=== PATIENT | female | born 1965 | race Caucasian/White ===

== ENCOUNTER 2020-06-12 14:11 | Inpatient (IN) | payer BC ==
[~2020-06-12] VITALS: Ht 177.8 cm; Wt 106.0 kg
[~2020-06-12 14:11] MED LIST: BACTRIM DS1 TAB PO; DIOVAN HC1 PO; DYAZIDE1 CAP PO; FERRAPLUS 90 PO; FOLIC ACID1 MG PO; METOPROL TAR50 MG PO; TRIAM/HCTZ1 CAP PO
--- NOTE | 2020-06-12 14:15 | NUR ---
PATIENT TO ROOM VIA WHEELCHAIR AND PHYSICIAN NOTIFIED OF PATIENT STATUS
[2020-06-12] MEDS ORDERED: LOSARTAN POTASS50 MG PO (15:38)
[2020-06-12] MEDS ORDERED: METOPROL TAR25 MG PO (15:39)
[2020-06-12 15:51] LABS: HEMATOCRIT 35.4 % (37.0-47.0); IMMATURE GRANULOCYTES 1.9 % (0.0-5.0); MEAN CORPUSCULAR HGB 27.3 pG CALC (26.0-32.0); MEAN CORPUSCULAR HGB CONC 31.4 g/dL CAL (32.0-36.0); NEUT# 5.98 thou/uL (2.00-7.15); RED BLOOD COUNT 4.07 mill/uL (4.20-5.60); RED CELL DISTRI WIDTH 15.9 % (11.5-15.5)
[2020-06-12 15:57] LABS: HEMOGLOBIN 11.1 g/dl (12.0-16.0)
[2020-06-12 16:10] LABS: ALBUMIN 3.7 g/dL (3.2-5.0); ALKALINE PHOSPHATASE 84 u/l (38-126); ANION GAP 13 (6-22 (CALC)); BUN 10 mg/dL (7-17); BUN/CREATININE RATIO 13 (12-20 (CALC)); CARBON DIOXIDE 29 mmol/l (22-30); CHLORIDE 96 mmol/l (95-108); CREATININE 0.8 mg/dL (0.5-1.0); GFR > 60 ML/MIN (>=60 (CALC)); GFR FOR AFR.AMER. > 60 ML/MIN (>=60 (CALC)); POTASSIUM 3.7 mmol/l (3.5-5.1); SODIUM 134 mmol/l (137-146); TOTAL PROTEIN 7.7 g/dL (6.3-8.2)
[2020-06-12 16:12] LABS: BILIRUBIN, TOTAL 0.4 mg/dL (0.0-1.4); SGOT/AST 50 u/l (14-36)
[2020-06-12 16:24] LABS: C-REACTIVE PROTEIN 26.2 mg/dL (0-0.9)
--- NOTE | 2020-06-12 17:32 | NUR ---
PT WITHOUT ACUTE DISTRESS
--- NOTE | 2020-06-12 18:21 | NUR ---
PT WITHOUT DISTRESS LOVENOX GIVEN
--- NOTE | 2020-06-12 18:40 | NUR ---
Admission Note Report Given to: sbar printed to floor Transported by: x Wheelchair Stretcher Transported with: x Nurse Transporter x Patent IV O2 x Automated Manufacturing Instructor Location: ICU x [facility]
--- NOTE | 2020-06-12 18:43 | NUR ---
PT ARRIVED TO [facility] VIA WHEELCHAIR ACCOMPANIED BY ER NURSE, PT ORIENTED TO ROOM AND CALL LIGHT, PT ALERT AND ORIENTED X3, DISCUSSED POC, SKIN INTACT, ADMISSION ASSESSMENT COMPLETED, CALL LIGHT IN REACH,CONTINUE TO MONITOR.
[2020-06-12 18:50] VITALS: BP 120/54
--- NOTE | 2020-06-12 20:40 | NUR ---
PT RESTING IN BED, ASSISTED PT TO BATHROOM, AMBULATED WITH STEADY GAIT, MEDICATED PER MAR. CALL LIGHT IN REACH,CONTINUE TO MONITOR.
[2020-06-13 00:22] VITALS: BP 103/48
--- NOTE | 2020-06-13 00:43 | NUR ---
FOREST PATHOLOGIST TO BEDSIDE, PT CHANGED DUE TO SWEATING. NEW GOWN AND LINENS PROVIDED. CALL LIGHT IN REACH,CONTINUE TO MONITOR.
[2020-06-13 03:29] VITALS: BP 117/57
--- NOTE | 2020-06-13 03:55 | NUR ---
PT RESTING IN BED, VITALS OBTAINED, PT VOICES NO NEEDS OR COMPLAINTS AT THIS TIME, CALL LIGHT IN REACH,CONTINUE TO MONITOR.
[2020-06-13 06:40] LABS: HEMATOCRIT 35.5 % (37.0-47.0); HEMOGLOBIN 11.1 g/dl (12.0-16.0); IMMATURE GRANULOCYTES 4.3 % (0.0-5.0); MEAN CELL VOLUME 87.4 fL CALC (80.0-100.0); MEAN CORPUSCULAR HGB 27.3 pG CALC (26.0-32.0); MEAN CORPUSCULAR HGB CONC 31.3 g/dL CAL (32.0-36.0); NEUT# 3.54 thou/uL (2.00-7.15); RED BLOOD COUNT 4.06 mill/uL (4.20-5.60); RED CELL DISTRI WIDTH 16.4 % (11.5-15.5)
[2020-06-13 07:06] LABS: ALBUMIN 3.2 g/dL (3.2-5.0); ALKALINE PHOSPHATASE 75 u/l (38-126); ANION GAP 14 (6-22 (CALC)); BILIRUBIN, TOTAL 0.3 mg/dL (0.0-1.4); BUN 12 mg/dL (7-17); BUN/CREATININE RATIO 20 (12-20 (CALC)); CARBON DIOXIDE 26 mmol/l (22-30); CHLORIDE 101 mmol/l (95-108); CREATININE 0.6 mg/dL (0.5-1.0); GFR > 60 ML/MIN (>=60 (CALC)); GFR FOR AFR.AMER. > 60 ML/MIN (>=60 (CALC)); POTASSIUM 4.4 mmol/l (3.5-5.1); SGOT/AST 29 u/l (14-36); SODIUM 136 mmol/l (137-146); TOTAL PROTEIN 6.3 g/dL (6.3-8.2)
[2020-06-13 07:30] LABS: C-REACTIVE PROTEIN 22.8 mg/dL (0-0.9)
[2020-06-13 08:00] VITALS: BP 123/59
--- NOTE | 2020-06-13 08:00 | NUR ---
ASSESSMENT IS COMPLETED: IV SITE IS FREE FROM REDNESS OR EDEMA. HR IS REG,PULSES ARE STRONG X4, ABD IS SOFT WITH ACTIVE BS. BREATH SOUNDS ARE CLEAR AND WHEEZING. TELE MONITOR # [id number]
[2020-06-13 10:45] VITALS: BP 102/52
--- NOTE | 2020-06-13 11:00 | NUR ---
PT WAS GETTING UP FROM THE BED APPEARED TO BE SWEATING, AND A LITTLE DISORIENTED. WHITTLING ROOM OPERATOR INQUIRED IF SHE WAS OK,. WANTING TO USE THE BATHROOM. EXPLAINED TO PT WHILE FEELING " WOOZY, AND LIGHT HEADED" NEED TO USE THE BSC PT VERBALIZED UNDERSTANDING.
--- NOTE | 2020-06-13 12:30 | NUR ---
PT IS RELAXING IN BED WITH MO DISTRESS NOTED. IV SITE IS FREE FROM REDNESS OR EDEMA.
--- NOTE | 2020-06-13 14:41 | NUR ---
ATTEMPTED X2 TO RESTART AN IV UNSUCCESSFUL/
--- NOTE | 2020-06-13 15:30 | NUR ---
IV SITE IN STARTED BY CASSIE TAYLOR. WITH 1 STICK. PT TOLERATED WELL.
[2020-06-13 15:44] VITALS: BP 106/55
--- NOTE | 2020-06-13 16:30 | NUR ---
PT IS RELAXING IN BED WITH NO DISTRESS NOTED. IV SITE IS FREE FROM REDNESS OR EDEMA.
[2020-06-13 18:42] VITALS: BP 116/46
--- NOTE | 2020-06-13 20:00 | NUR ---
PATIENT RESTING IN BED AT THIS TIME WITH O2 VIA NASAL CANNULA IN PLACE. AWAKE ALERT AND ORIENTEDX3 ON ISOLATION IN NEG PRESSURE ROOM FOR R/O COVID. PATIENT WITH MOSTLY NON-PRODUCTIVE COUGH. OCC PRODUCTIVE WITH YELLOW SPUTUM. PATIENT MEDICATED WITH [id number] FOR COUGH. SALINE LOCK TO LEFT HAND AND RIGHT WRIST-FLUSHED WITH SALINE FLUSH. TELE MONITOR IN PLACE. PATIENT STATES THAT SHE IS HAVING DIARRHEA. DENIES ANY DIFFICULTY WITH URINATION.
[2020-06-14] VITALS (8 sets, daily range): BP systolic 87–125; BP diastolic 39–62
--- NOTE | 2020-06-14 00:37 | NUR ---
PATIENT RESTING IN BED AT THIS TIME ON ISOLATION IN NEG PRESSURE ROOM FOR R/O COVID-AWAITING SWAB RESULTS. PATIENT WEARING O2 VIA NASAL CANNULA AT 2LPM. NON-PRODUCTIVE COUGH. TELE MONITOR IN PLACE. SALINE LOCK TO RIGHT WRIST AND LEFT HAND-BOTH INTACT. SAFETY PRECAUTIONS REINFORCED. CALL LIGHT IN REACH. WILL CONT TO MONITOR.
--- NOTE | 2020-06-14 04:00 | NUR ---
PATIENT RESTIN IN BED AT THIS TIME-APPEARS SLEEPING WITH O2 VIA NASAL CANNULA IN PLACE AND EYES CLOSED. RESP ARE EVEN AND UNLAB ORED AT THIS TIME. CALL LIGHT IN REACH. WILL CONT TO MONITOR
[2020-06-14 06:33] LABS: HEMATOCRIT 33.8 % (37.0-47.0); HEMOGLOBIN 10.4 g/dl (12.0-16.0); IMMATURE GRANULOCYTES 4.9 % (0.0-5.0); MEAN CORPUSCULAR HGB 27.1 pG CALC (26.0-32.0); MEAN CORPUSCULAR HGB CONC 30.8 g/dL CAL (32.0-36.0); NEUT# 5.36 thou/uL (2.00-7.15); RED BLOOD COUNT 3.84 mill/uL (4.20-5.60); RED CELL DISTRI WIDTH 15.9 % (11.5-15.5)
[2020-06-14 07:00] LABS: ALBUMIN 3.2 g/dL (3.2-5.0); ALKALINE PHOSPHATASE 72 u/l (38-126); ANION GAP 13 (6-22 (CALC)); BILIRUBIN, TOTAL 0.3 mg/dL (0.0-1.4); BUN 13 mg/dL (7-17); BUN/CREATININE RATIO 24 (12-20 (CALC)); C-REACTIVE PROTEIN 7.9 mg/dL (0-0.9); CARBON DIOXIDE 27 mmol/l (22-30); CHLORIDE 103 mmol/l (95-108); CREATININE 0.5 mg/dL (0.5-1.0); GFR > 60 ML/MIN (>=60 (CALC)); GFR FOR AFR.AMER. > 60 ML/MIN (>=60 (CALC)); POTASSIUM 4.7 mmol/l (3.5-5.1); SGOT/AST 26 u/l (14-36); SODIUM 138 mmol/l (137-146); TOTAL PROTEIN 6.4 g/dL (6.3-8.2)
--- NOTE | 2020-06-14 07:40 | NUR ---
ASSESSMENT IS COMPLETED: IV SITE IS FREE FROM REDNESS OR EDEMA. HR IS REG,PULSES ARE STRONG X4, ABD IS SOFT WITH ACTIVE BS. BREATH SOUNDS ARE CLEAR,AND WHEEZING NOTED. TELE MONITOR IN PLACE. ENCOURAGED PT TO GO PRONE FOR THE BREATHING.
--- NOTE | 2020-06-14 12:30 | NUR ---
PT IS RELAXING IN BED WITH NO DISTRESS NOTED. IV SIT IS FREE FROM REDNESS OR EDEMA.
--- NOTE | 2020-06-14 16:30 | NUR ---
PT IS RELAXING IN BED WITH NO DISTRESS NOTED. IV SITE IS FREE FROM REDNESS OR EDEMA.
--- NOTE | 2020-06-14 20:00 | NUR ---
PATIENT UP TO THE BR AT THIS TIME-STEADY ON HER FEET WITH O2 VIA NASAL CANNULA IN PLACE. PATIENT IS ALERT AND ORIENTEDX3. PATIENT IS SOB WITH EXHERSION. NON-PRODUCTIVE COUGH IS NOTED. PATIENT IS ON ISOLATION IN NEG PRESSURE ROOM FOR COVID. PATIENT WITH IV SITE TO LEFT HAND INTACT AND APPEARS HEALTHY AT THIS TIME. TELE MONITOR IN PLACE. ENCOURAGED PATIENT TO PRONE WHEN POSSIBLE TO AID IN [employer]. STATES THAT SHE WILL TRY TONIGHT. O2 INCREASED TO 3LPM VIA NASAL CANNULA. PROVIDED WITH SNACKS AND DRINKS. SAFETY PRECAUTIONS REINFORCED. CALL LIGHT IN REACH, WILL CONT TO MONITOR.
--- NOTE | 2020-06-15 00:30 | NUR ---
PATIENT LYING PRONE IN BED AT THIS TIME WITH O2 VIA NASAL CANNULA AT 3LPM. O2 SAT AT 95% AT THIS TIME. RESP ARE EVEN AND U NLAB ORED AT THIS TIME. PATIENT APPEARS RESTING COMFORTABLY AT TH IS ITME. CALL LIGHT IN REACH. WILL CONT TO MONITOR.
[2020-06-15 03:00] VITALS: BP 117/56
--- NOTE | 2020-06-15 05:00 | NUR ---
PATIENT RESTING IN BED WAS ABLE TO PRONE FOR A FEW HOURS TONIGHT. PATIENT IS NOW POSITIONED ON LEFT SIDE WITH O2 VIA NASAL CANNULA AT 3LPM. TELE MONITOR IN PLACE. PATIENT REMAINS ON ISOLATION IN NEG PRESSURE ROOM FOR COVID. CALL LIGHT IN REACH. WILL CONT TO MONITOR.
--- NOTE | 2020-06-15 07:50 | NUR ---
ASSESSMENT IS COMPLETED: IV SITE IS FREE FROM REDNESS OR EDEMA. HR IS REG,PULSES ARE STRONG X4, ABD IS SOFT WITH ACTIVE BS. BREATH SOUNDS ARE DIMINISHED. O2 @ 3 LITERS WITH NC. TELE MONITOR #[id number]. CONTINUE TO OSBERVE AND MONITOR.
[2020-06-15 07:51] VITALS: BP 106/63
[2020-06-15 11:28] VITALS: BP 101/54
--- NOTE | 2020-06-15 12:15 | NUR ---
PT IS RELAXING IN BED WITH MO DISTRESS NOTED. IV SITE IS FREE FROM REDNESS OR EDEMA.
--- NOTE | 2020-06-15 14:25 | NUR ---
PT WAS GIVEN THE ISP , ABLE TO USE TO 1200
[2020-06-15 16:00] VITALS: BP 113/72
--- NOTE | 2020-06-15 16:20 | NUR ---
PT HAS BEEN USING THE ISP. IV SITE IS FREE FROM REDNESS OR EDEMA. CONTINUE TO OSBERVE AND MONITOR.
[2020-06-15 19:45] VITALS: BP 107/56
--- NOTE | 2020-06-15 20:15 | NUR ---
2015-PT LYING IN BED AT TIME OF ASSESSMENT. DENIES PAIN. NO S/S OF DISTRESS. SHE IS PLEASANT AND HELPFUL WITH HER PLAN OF CARE. PT DID COUGH BUT IT RESOLVED VERY QUICKLY. INSTRUCTED PT TO TURN, BREATH DEEP AND COUGH. I ALSO SAID THAT SHE COULD AMBULATE IN HER ROOM. BED LOW AND LOCKED. CALL LIGHT AND PHONE WITHIN REACH. PT STABLE. WILL CONTINUE TO MONITOR.
[2020-06-16 00:13] VITALS: BP 123/77
--- NOTE | 2020-06-16 02:15 | NUR ---
0215-PT ASLEEP IN BED. NO S/S OF DISTRESS. BED LOW AND LOCKED. CALL LIGHT AND PHONE WITHIN REACH. PT STABLE, WILL CONTINUE TO MONITOR.
[2020-06-16 05:05] VITALS: BP 128/72
[2020-06-16 06:11] LABS: HEMATOCRIT 35.3 % (37.0-47.0); HEMOGLOBIN 10.7 g/dl (12.0-16.0); MEAN CELL VOLUME 89.1 fL CALC (80.0-100.0); MEAN CORPUSCULAR HGB CONC 30.3 g/dL CAL (32.0-36.0); NEUT# 5.08 thou/uL (2.00-7.15); RED BLOOD COUNT 3.96 mill/uL (4.20-5.60); RED CELL DISTRI WIDTH 15.8 % (11.5-15.5)
--- NOTE | 2020-06-16 06:27 | NUR ---
0627-PT ASLEEP IN BED ON LEFT SIDE. NO S/S OF DISTRESS. BED LOW AND LOCKED. CALL LIGHT AND PHONE WITHIN REACH. PT STABLE AT THIS TIME, WILL CONTINUE TO MONITOR.
[2020-06-16 06:36] LABS: ALKALINE PHOSPHATASE 64 u/l (38-126); ANION GAP 12 (6-22 (CALC)); BILIRUBIN, TOTAL 0.2 mg/dL (0.0-1.4); BUN 13 mg/dL (7-17); BUN/CREATININE RATIO 21 (12-20 (CALC)); C-REACTIVE PROTEIN 2.8 mg/dL (0-0.9); CARBON DIOXIDE 28 mmol/l (22-30); CHLORIDE 104 mmol/l (95-108); CREATININE 0.6 mg/dL (0.5-1.0); GFR > 60 ML/MIN (>=60 (CALC)); GFR FOR AFR.AMER. > 60 ML/MIN (>=60 (CALC)); POTASSIUM 4.5 mmol/l (3.5-5.1); SODIUM 140 mmol/l (137-146)
[2020-06-16 06:42] LABS: SGOT/AST 50 u/l (14-36)
[2020-06-16 07:00] LABS: IMMATURE GRANULOCYTES 8.7 % (0.0-5.0)
[2020-06-16 09:00] VITALS: BP 128/63
--- NOTE | 2020-06-16 09:00 | NUR ---
ASSESSMENT IS COMPLETED: IV SITE IS FREE FROM REDNESS OR EDEMA. HR IS REG,PULSES ARE STRONG X4, ABD IS SOFT WITH ACTIVE BS. BREATHS OUNDS ARE DIMINSHED WITH SOME COARSE. O2 @3LITERS WITH NC . TELE MONTIOR I NPLACE. CONTINEU TO OBSERVE AND MONITOR.
[2020-06-16 10:30] VITALS: BP 106/50
[2020-06-16 15:20] VITALS: BP 121/63
--- NOTE | 2020-06-16 16:40 | NUR ---
PT IS RELAXING IN BED WITH NO DISTRESS NOTED. IV SITE IS FREE FROM REDNESS OR EDEMA.
[2020-06-16 19:35] VITALS: BP 122/61
--- NOTE | 2020-06-16 20:55 | NUR ---
PT MEDICATED ORDERS PROVIDE AND ASSESSMENT COMPLETED AT THIS TIME. LUNG SOUNDS ARE DIM/CLEAR, REPORTS STOOL OUTPUT 2X SMALL SOFT THIS DAY. PT REPORTS MILD SOB UPON EXERTION, BUT STATES THAT IT IS IMPROVING. NO S/O DISTRESS AT THIS TIME. SNACK PROVIDED AND PT ENCOURAGED TO CALL NEEDS ARISE. DENIES ANY OTHER NEEDS AT THIS TIME. CALL LIGHT W/IN REACH.
[2020-06-17 00:20] VITALS: BP 130/69
--- NOTE | 2020-06-17 01:32 | NUR ---
PT SLEEPING, NO S/O DISTRESS NOTED. PT IS IN PRONE POSITION WITH LIGHTS AND TV OUT. CALL LIGHT AT SIDE.
--- NOTE | 2020-06-17 03:10 | NUR ---
PT SLEEPING AT THIS TIME. NO S/O DISTRESS NOTED. CALL LIGHT AT SIDE.
[2020-06-17 03:40] VITALS: BP 112/55
--- NOTE | 2020-06-17 05:00 | NUR ---
LAB IS IN WITH PT AT THIS TIME.
--- NOTE | 2020-06-17 05:19 | NUR ---
PT APPEARS TO BE SLEEPING AT THIS TIME. NO S/O DISTRESS NOTED. CALL LIGHT AT SIDE.
[2020-06-17 05:50] LABS: HEMATOCRIT 34.7 % (37.0-47.0); HEMOGLOBIN 10.4 g/dl (12.0-16.0); MEAN CELL VOLUME 89.9 fL CALC (80.0-100.0); MEAN CORPUSCULAR HGB 26.9 pG CALC (26.0-32.0); RED BLOOD COUNT 3.86 mill/uL (4.20-5.60)
[2020-06-17 05:57] LABS: ALKALINE PHOSPHATASE 65 u/l (38-126); ANION GAP 11 (6-22 (CALC)); BILIRUBIN, TOTAL 0.2 mg/dL (0.0-1.4); BUN 13 mg/dL (7-17); BUN/CREATININE RATIO 22 (12-20 (CALC)); CARBON DIOXIDE 29 mmol/l (22-30); CHLORIDE 104 mmol/l (95-108); CREATININE 0.6 mg/dL (0.5-1.0); GFR > 60 ML/MIN (>=60 (CALC)); GFR FOR AFR.AMER. > 60 ML/MIN (>=60 (CALC)); POTASSIUM 4.6 mmol/l (3.5-5.1); SGOT/AST 64 u/l (14-36); SODIUM 139 mmol/l (137-146)
[2020-06-17 08:20] VITALS: BP 123/57
--- NOTE | 2020-06-17 08:20 | NUR ---
ASSESSMENT IS COMPLETED: IV SITE IS FREE FROM REDNESS OR EDEMA. HR IS REG,PULSES ARE STRONG X4, ABD IS SOFT WITH ACTIVE BS. BREATH SOUNDS ARE WHEEZING, BILATERALLY. TELE MONITOR IN PLACE. O2 @ 3LITERS WITH NC. COLOR LOOKS GOOD, PT STATED" I DONT FEEL WELL TODAY"
[2020-06-17 10:45] VITALS: BP 93/50
--- NOTE | 2020-06-17 12:45 | NUR ---
PT IS RELAXING IN BED WITH NO DISTRESS NOTED. IV SITE IS FREE FROM REDNESS OR EDEAM.
[2020-06-17 15:35] VITALS: BP 113/54
--- NOTE | 2020-06-17 16:45 | NUR ---
PT IS RELAXING IN BED HAS BEEN AMBULATING IN THE ROOM. NO DISTRESS NOTED. IV SITE IS FREE FROM REDNESS OR EDEMA. CONTINUE TO OSBERVE AND MONITOR.
[2020-06-17 20:15] VITALS: BP 105/46
--- NOTE | 2020-06-17 20:20 | NUR ---
PT V/S ASSESSED AND ASSESSMENT COMPLETED AT THIS TIME. PT REPORTS COUGHING LOOSE "LIGHT COLORED" SPUTUM. LUNG SOUNDS ARE CLEAR TO AIR MOVEMENT, BUT SLIGHTLY WET SOUNDING WHEN PT COUGHS. PT DENIES N/V. REPORTS 1X BM THIS DAY AND DENIES ISSUES URINATING. IV SITE FLUSHES PATENT AND WAS SECURRED WITH TAPE FOR COMFORT.PT DENIES ANY OTHER NEEDS. MEDICATIONS ADMINISTERED ORDERS PROVIDE. CALL LIGHT AT SIDE AND PT ENCOURAGED TO CALL NEEDS ARISE.
[2020-06-18] VITALS (7 sets, daily range): BP systolic 85–125; BP diastolic 41–67
--- NOTE | 2020-06-18 01:25 | NUR ---
PT IS SLEEPING IN PRONE POSITION, NO S/O DISTRESS NOTED. LIGHTS AND TV ARE OFF.
--- NOTE | 2020-06-18 04:10 | NUR ---
PT SLEEPING, HORSE IDENTIFIER IN OBTAINING V/S AT THIS TIME. DENIES ANY NEEDS.
[2020-06-18 05:28] LABS: HEMATOCRIT 35.7 % (37.0-47.0); HEMOGLOBIN 10.8 g/dl (12.0-16.0); MEAN CELL VOLUME 90.6 fL CALC (80.0-100.0); MEAN CORPUSCULAR HGB 27.4 pG CALC (26.0-32.0); MEAN CORPUSCULAR HGB CONC 30.3 g/dL CAL (32.0-36.0); NEUT# 6.46 thou/uL (2.00-7.15); RED BLOOD COUNT 3.94 mill/uL (4.20-5.60); RED CELL DISTRI WIDTH 16.5 % (11.5-15.5)
[2020-06-18 05:35] LABS: IMMATURE GRANULOCYTES 9.6 % (0.0-5.0)
[2020-06-18 05:46] LABS: ALKALINE PHOSPHATASE 66 u/l (38-126); ANION GAP 12 (6-22 (CALC)); BUN 15 mg/dL (7-17); BUN/CREATININE RATIO 28 (12-20 (CALC)); CARBON DIOXIDE 27 mmol/l (22-30); CHLORIDE 104 mmol/l (95-108); CREATININE 0.5 mg/dL (0.5-1.0); GFR > 60 ML/MIN (>=60 (CALC)); GFR FOR AFR.AMER. > 60 ML/MIN (>=60 (CALC)); POTASSIUM 4.9 mmol/l (3.5-5.1); SGOT/AST 49 u/l (14-36); SODIUM 138 mmol/l (137-146)
[2020-06-18 05:53] LABS: BILIRUBIN, TOTAL 0.3 mg/dL (0.0-1.4)
--- NOTE | 2020-06-18 07:30 | NUR ---
PATIENT ALERT AND ORIENTED AND IN BED RESTING AT THIS TIME CALL LIGHT NEAR SIDERAILS UP X 2 DENIES ANY PAIN. PATIETN 02 ON AT 3 LITERS. PATIENT REFUSING TO HAVE IV CHANGED AT THIS TIME.
--- NOTE | 2020-06-18 11:59 | NUR ---
PATIENT RESTING IN BED O2 REMAINS ON AT THIS TIME DENIES ANY NEEDS OR PAIN. SIDERAILS UP X 2 CALL LIGHT WITHIN REACH.
--- NOTE | 2020-06-18 16:19 | NUR ---
PATIENT LAYING IN BED AT THIS TIME. PATIENT DENIES ANY NEEDS AT THIS TIME CALL LIGHT IS WITHIN REACH SIDERAILS ARE UP X2.
--- NOTE | 2020-06-18 20:42 | NUR ---
SNACKS PROVIDED PER REQUEST. MEDICATIONS ADMINISTERED ORDERS PROVIDE AND OXYGEN SAT LEVEL ASSESSED @96% SUSTAINING. WILL CONTINUE TO MONITOR.-
--- NOTE | 2020-06-18 20:43 | NUR ---
V/S ASSESSED BY SPECIAL INVESTIGATION UNIT INVESTIGATOR AND ASSESSMENT COMPLETED BY SWITCH FOREMAN. NO S/O DISTRESS NOTED, PT REPORTS MINIMAL THICK WHITE SPUTUM AT TIMES. LUNG SOUNDS ARE DIM IN LOWER LOBES AND CLEAR THROUGHOUT. OXYGEN TITRATED DOWN TO 1L FROM 2L. WILL EVALUATE FOR SAT RESPONSE. 95% AT THIS TIME. CALL LIGHT AT SIDE AND PT INSTRUCTED TO CALL IF SHE FEELS AN INCREASE IN SOB OR ANY DISTRESS AT ALL.-
--- NOTE | 2020-06-18 23:07 | NUR ---
PT APPEARS TO BE SLEEPING AT THIS TIME. LIGHTS AND TV ARE OFF. NO S/O DISTRESS.
--- NOTE | 2020-06-18 23:15 | NUR ---
V/S ASSESSED. PT SAT LEVELS ARE 96% ON 1LNC. OXYGEN REMOVED TO ASSESS OXYGEN LEVELS ON ROOM AIR. PT SAT LEVELS ARE READING 94% AT THIS TIME. WILL MONITOR CLOSELY FOR MAINTAINING.
--- NOTE | 2020-06-18 23:32 | NUR ---
OXYGEN SAT LEVELS ASSESSED ON ROOM AIR @93% WILL CONTINUE TO MONITOR. OXYGEN NC IS AT SIDE AND PT WAS INSTRUCTED TO REAPPLY IF SHE FEELS SOB AND TO CALL FOR ANY S/O DISTRESS. SHE VERBALIZED AGREEMENT/UNDERSTANDING. SHE ALSO WAS ASKED TO CALL WHEN SHE NEEDED TO AMBULATE TO RESTROOM SO HER OXYGEN LEVELS CAN BE MONITORED WITH EXERTION.
[2020-06-19 04:00] VITALS: BP 88/40
--- NOTE | 2020-06-19 04:00 | NUR ---
PT PROVIDED JUICE. SHE REPORTED HAVING JUST PUT HER OXYGEN BACK ON, IT IS SET AT 1L. SHE ALSO REPORTED SELF AMBULATING TO RESTROOM, BUT SHE DID NOT CALL FOR HER OXYGEN TO BE CHECKED. OXYGEN LEVELS ARE AT 96% AT THIS TIME ON 1L.
[2020-06-19 05:41] VITALS: BP 117/71
[2020-06-19 06:12] LABS: HEMATOCRIT 36.9 % (37.0-47.0); HEMOGLOBIN 11.2 g/dl (12.0-16.0); MEAN CELL VOLUME 90.4 fL CALC (80.0-100.0); MEAN CORPUSCULAR HGB 27.5 pG CALC (26.0-32.0); MEAN CORPUSCULAR HGB CONC 30.4 g/dL CAL (32.0-36.0); NEUT# 6.41 thou/uL (2.00-7.15); RED BLOOD COUNT 4.08 mill/uL (4.20-5.60); RED CELL DISTRI WIDTH 16.9 % (11.5-15.5)
[2020-06-19 06:29] LABS: IMMATURE GRANULOCYTES 9.3 % (0.0-5.0)
[2020-06-19 06:36] LABS: ALBUMIN 3.2 g/dL (3.2-5.0); ALKALINE PHOSPHATASE 69 u/l (38-126); ANION GAP 12 (6-22 (CALC)); BILIRUBIN, TOTAL 0.3 mg/dL (0.0-1.4); BUN 16 mg/dL (7-17); BUN/CREATININE RATIO 27 (12-20 (CALC)); C-REACTIVE PROTEIN 1.2 mg/dL (0-0.9); CARBON DIOXIDE 27 mmol/l (22-30); CHLORIDE 104 mmol/l (95-108); CREATININE 0.6 mg/dL (0.5-1.0); GFR > 60 ML/MIN (>=60 (CALC)); GFR FOR AFR.AMER. > 60 ML/MIN (>=60 (CALC)); POTASSIUM 4.5 mmol/l (3.5-5.1); SGOT/AST 31 u/l (14-36); SODIUM 138 mmol/l (137-146); TOTAL PROTEIN 6.1 g/dL (6.3-8.2)
[2020-06-19 07:48] VITALS: BP 118/66
[2020-06-19 10:50] VITALS: BP 113/40
--- NOTE | 2020-06-19 11:10 | NUR ---
PATIENT PERFORMED WALK TEST, SURGICAL GARMENT ASSEMBLY SUPERVISOR NOTIFIED OF RESULTS.
[2020-06-19] MEDS ORDERED: ZITHROMAX250 MG PO (11:16)
[2020-06-19] MEDS ORDERED: DEXAMETHASON6 MG PO (11:17)
--- NOTE | 2020-06-19 13:49 | NUR ---
PATIENT DISCHARGED HOME, PATIENT RECEIVED DISCHARGE INSTRUCTIONS AND NEW PRESCRIPTIONS SENT TO PHARMACY, PATIENT VERBALIZED UNDERSTANDING OF D/C INSTRUCTIONS, PATIENT IV REMOVED CATHETER INTACT NO BLEEDING NOTED. TELEMETRY REMOVED, PATIENT HAS ALL PERSONAL BELONGINGS, AND PATIENT WHEELED DOWN TO DISCHARGE WITH FAMILY.
== END 2020-06-19 13:47 | disposition home or self-care (01) | DRG 177 ==
LOC: ED 14:11 → ED-I 17:00 → ED 17:24 → MS2 17:25
PROVIDERS: Family Medicine; Nurse Practitioner; Nurse Practitioner Family; ADMIT Internal Medicine; ATTEND Internal Medicine
PROC: XW033E5 Introduction of Remdesivir Anti-infective into Peripheral Vein, Percutaneous Approach, New Technology Group 5 (ICD-10-PCS; principal; 2020-06-13)
DX: U07.1 COVID-19 (principal); J12.89 Other viral pneumonia; J96.00 Acute respiratory failure, unspecified whether with hypoxia or hypercapnia; I10 Essential (primary) hypertension; E11.9 Type 2 diabetes mellitus without complications; E03.9 Hypothyroidism, unspecified; F17.200 Nicotine dependence, unspecified, uncomplicated; R20.2 Paresthesia of skin
CPT/HCPCS: J1650

== ENCOUNTER 2022-11-18 08:49 | Day surgery (SDC) | payer BC ==
[~2022-11-18] VITALS: Ht 177.8 cm; Wt 110.2 kg
[~2022-11-18 08:49] MED LIST changes: +ALDACTONE25 MG PO; +ALLEGRA HIVES180 MG PO; +BENZONATATE200 MG PO; +CRESTOR20 MG PO; +DEXAMETHASON6 MG PO; +FLEXERIL5 M1 PO; +LEVOTHYROXIN75 MC1 PO; +LOSARTAN POTASS50 MG PO; +MAXZIDE-25MG1 COMBO PO; +METFORMIN500 M2 PO; +METHOTREXATE S2.5 MG PO; +METOPROL TAR25 MG PO; +MONTELUKAST SOD10 MG PO; +PROTONIX40 M2 PO; +TIZANIDINE2 MG PO; +TRAZODONE50 MG PO; +TRULICITY1.5 MG/0.5 IN; +ZITHROMAX250 MG PO; +ZYRTEC10 M5 PO
[2022-11-18 11:07] VITALS: BP 109/64
== END 2022-11-18 11:20 | disposition home or self-care (01) | DRG 812 ==
LOC: ENDO 08:49 → ORM 12:05
PROVIDERS: ATTEND Internal Medicine Gastroenterology
PROC: 0DJD8ZZ Inspection of Lower Intestinal Tract, Via Natural or Artificial Opening Endoscopic (ICD-10-PCS; principal; 2022-11-18)
PROC: 0DB98ZX Excision of Duodenum, Via Natural or Artificial Opening Endoscopic, Diagnostic (ICD-10-PCS; 2022-11-18)
PROC: 0DB78ZX Excision of Stomach, Pylorus, Via Natural or Artificial Opening Endoscopic, Diagnostic (ICD-10-PCS; 2022-11-18)
PROC: 0DB48ZX Excision of Esophagogastric Junction, Via Natural or Artificial Opening Endoscopic, Diagnostic (ICD-10-PCS; 2022-11-18)
DX: D50.0 Iron deficiency anemia secondary to blood loss (chronic) (principal); K92.1 Melena; K64.8 Other hemorrhoids; K29.50 Unspecified chronic gastritis without bleeding; K21.00 Gastro-esophageal reflux disease with esophagitis, without bleeding; K22.70 Barrett's esophagus without dysplasia; K44.9 Diaphragmatic hernia without obstruction or gangrene; E11.42 Type 2 diabetes mellitus with diabetic polyneuropathy; I10 Essential (primary) hypertension; E11.69 Type 2 diabetes mellitus with other specified complication; E78.5 Hyperlipidemia, unspecified; I20.8 Other forms of angina pectoris; E03.9 Hypothyroidism, unspecified; Z79.84 Long term (current) use of oral hypoglycemic drugs; Z79.85 Long-term (current) use of injectable non-insulin antidiabetic drugs; Z87.891 Personal history of nicotine dependence

== ENCOUNTER 2024-07-22 09:43 | Emergency (ER) | payer BC ==
[2024-07-22] VITALS (7 sets, daily range): BP systolic 101–139; BP diastolic 58–85
[~2024-07-22] VITALS: Ht 177.8 cm; Wt 84.0 kg
[~2024-07-22 09:43] MED LIST changes: +BL ASPIRIN325 MG PO; +HYDROCO/APAP1 TA9 PO; +MAXZIDE PO; +MOUNJARO7.5 MG SI; +PROTONIX40 MG PO
[2024-07-22] MEDS ORDERED: SODIUM CHLORIDE 0.9% 1,000 ML IV ONE (10:05)
[2024-07-22] MEDS ORDERED: KETOROLAC TROMETHAMINE 15 MG/ML SDV IV ONE (10:05)
[2024-07-22 10:09] LABS: URINE BILIRUBIN - DIPSTICK Negative (NEGATIVE); URINE BLOOD DIPSTICK Negative (NEGATIVE); URINE GLUCOSE - DIPSTICK Negative (NEGATIVE); URINE KETONE Negative (NEGATIVE); URINE LEUK ESTERASE Negative (NEGATIVE); URINE NITRITE - DIPSTICK Negative (Negative); URINE PROTEIN - DIPSTICK Negative (NEG-TRACE); URINE UROBILINOGEN - DIPSTICK 0.2 E.U./dL (0.2)
[2024-07-22 10:11] LABS: URINE COLOR Yellow
[2024-07-22 10:13] LABS: BASO% 0.7 % (0-3); EOS% 2.1 % (0-8); IMMATURE GRANULOCYTES 0.1 % (0.0-5.0); MEAN CORPUSCULAR HGB 32.2 pG CALC (26.0-32.0); MEAN CORPUSCULAR HGB CONC 32.4 g/dL CAL (32.0-36.0); MONO% 1.8 % (2-13); NEUT# 6.59 thou/uL (2.00-7.15); NEUT% 72.3 % (42-76); RED BLOOD COUNT 4.78 mill/uL (4.20-5.60); RED CELL DISTRI WIDTH 12.9 % (11.5-15.5)
[2024-07-22 10:20] LABS: HEMATOCRIT 47.5 % (37.0-47.0); HEMOGLOBIN 15.4 g/dl (12.0-16.0); MEAN CELL VOLUME 99.4 fL CALC (80.0-100.0)
[2024-07-22 10:23] LABS: CREATININE 0.7 mg/dL (0.5-1.0); POTASSIUM 4.4 mmol/l (3.5-5.1)
[2024-07-22 10:24] LABS: ALBUMIN 4.6 g/dL (3.2-5.0); BILIRUBIN, TOTAL 0.8 mg/dL (0.02-1.3); TOTAL PROTEIN 7.7 g/dL (6.3-8.2)
[2024-07-22] MEDS ORDERED: NAPROXEN500 MG PO (14:02)
== END 2024-07-22 14:15 | disposition home or self-care (01) | DRG 392 ==
LOC: ED 09:43
PROVIDERS: Family Medicine
DX: R10.31 Right lower quadrant pain (principal); I10 Essential (primary) hypertension; E11.9 Type 2 diabetes mellitus without complications; Z79.85 Long-term (current) use of injectable non-insulin antidiabetic drugs
CPT/HCPCS: J1885; Q9967